=== PATIENT | male | born 1980 | race Two or more races ===

== ENCOUNTER 2021-12-07 03:41 | Emergency (ER) | payer OTHER ==
[~2021-12-07] VITALS: Ht 175.3 cm; Wt 90.7 kg
--- NOTE | 2021-12-07 04:00 | NUR ---
PT C/O MIGRAINE PL: 04/24. A/O X4, NO SOB OR LABORED BREATHING
--- NOTE | 2021-12-07 04:01 | NUR ---
Dr Rivera at bedside for MSE
[2021-12-07] MEDS ORDERED: HYDROMORPHONE 1 MG/1 ML DISP.SYRIN IM ONE (04:30)
[2021-12-07] MEDS ORDERED: ONDANSETRON ODT 4 MG TAB.RAPDIS SL ONE (04:30)
[2021-12-07] MEDS ORDERED: HYDROMORPHONE 2 MG/1 ML DISP.SYRIN ONE (04:41)
[2021-12-07] MEDS ORDERED: ONDANSETRON ODT 4 MG TAB.RAPDIS ONE (04:42)
[2021-12-07] MEDS ORDERED: HYDROMORPHONE 1 MG/1 ML DISP.SYRIN ONE (04:43)
[2021-12-07] MEDS ORDERED: OXYC-128 PO (05:02)
[2021-12-07] MEDS ORDERED: PROC-11 PO (05:02)
--- NOTE | 2021-12-07 05:20 | NUR ---
Patient discharged to home in stable condition. Written and verbal after care instructions given. Patient verbalizes understanding of instructions. Stressed follow up or return to ER for worsening s/s. Patient ambulated steady gait, denies pain, no SOB, no CP, A/O x4, no distress noted.
[2021-12-07 05:30] VITALS: BP 120/76
[2021-12-07 05:30] LABS: POTASSIUM 4.5 mmol/L (3.5-5.1)
[2021-12-07 05:31] LABS: CREATININE 1.7 mg/dL (0.6-1.3)
[2021-12-07 06:32] LABS: BILIRUBIN,DIRECT 0.1 mg/dL (0.0-0.2); BILIRUBIN,TOTAL 0.6 mg/dL (0.2-1.0)
[2021-12-07 06:33] LABS: TOTAL PROTEIN, SERUM 7.5 g/dL (6.4-8.2)
== END 2021-12-07 05:28 | disposition home or self-care (01) ==
LOC: ER 03:56
DX: B02.9 Zoster without complications (principal); R50.9 Fever, unspecified; M79.10 Myalgia, unspecified site
CPT/HCPCS: 36415; 80048; 80076; 85025; 96372; 99283; J1170 ×2; A4663; Q0162

== ENCOUNTER 2024-03-22 16:13 | Emergency (ER) | payer OTHER ==
[~2024-03-22] VITALS: Ht 175.3 cm; Wt 93.0 kg
[~2024-03-22 16:13] MED LIST: OXYC-128 PO; PROC-11 PO
[2024-03-22 17:18] LABS: BASOPHILS # (AUTO) 0.1 K/UL (0.0-0.2); BASOPHILS % (AUTO) 0.9 % (0.0-2.0); EOSINOPHILS # (AUTO) 0.2 K/uL (0.0-0.7); EOSINOPHILS % (AUTO) 3.3 % (0.0-7.0); HEMATOCRIT 50.1 % (36.7-47.1); LYMPHOCYTES # (AUTO) 1.3 K/uL (0.8-4.8); LYMPHOCYTES % (AUTO) 21.7 % (20.5-51.5); MEAN CORPUSCULAR HEMOGLOBIN 31.5 uug (23.8-33.4); MEAN CORPUSCULAR HGB CONC 34 g/dL (32.5-36.3); MONOCYTES # (AUTO) 0.4 K/uL (0.1-1.30); MONOCYTES % (AUTO) 7.3 % (0.0-11.0); NEUTROPHILS % (AUTO) 66.8 % (38.5-71.5); PLATELET COUNT (AUTO) 230 K/uL (152-348); RED BLOOD CELL COUNT(AUTO) 5.39 MIL/uL (4.06-5.63); RED CELL DISTRIBUTION WIDTH 13.6 % (12.1-16.2); WHITE BLOOD COUNT (AUTO) 6.1 K/uL (3.6-10.2)
[2024-03-22 17:19] LABS: DIFFERENTIAL COMMENT 1
[2024-03-22] MEDS ORDERED: IOHEXOL 350 100 ML INFUS..BTL ONE (17:23)
[2024-03-22] MEDS ORDERED: IV NORMAL SALINE 250 ML IV ONE (17:23)
[2024-03-22] MEDS ORDERED: SWABABLE VALVE TRANSFER SET EA MC ONE (17:23)
[2024-03-22 17:25] LABS: CALCIUM 8.8 mg/dL (8.5-10.1); CARBON DIOXIDE 27 mmol/L (21-32); CHLORIDE 105 mmol/L (98-107); CREATININE 1.5 mg/dL (0.6-1.3); GLUCOSE 94 mg/dL (74-106); POTASSIUM 4.2 mmol/L (3.5-5.1); SODIUM SERUM 140 mmol/L (136-145); UREA NITROGEN, BLOOD 14 mg/dL (7-18)
[2024-03-22 17:34] LABS: ALANINE AMINOTRANSFERASE 31 U/L (16-63); ALBUMIN 3.4 g/dL (3.4-5.0); ALKALINE PHOSPHATASE 66 U/L (50-136); ASPARTATE AMINOTRANSFERASE 16 U/L (15-37); BILIRUBIN,DIRECT 0.2 mg/dL (0.0-0.2); BILIRUBIN,TOTAL 0.5 mg/dL (0.2-1.0); TOTAL PROTEIN, SERUM 7.3 g/dL (6.4-8.2)
[2024-03-22 19:09] VITALS: BP 131/61; O2SAT 97
== END 2024-03-22 19:11 | disposition home or self-care (01) ==
LOC: ER 16:14
DX: R42 Dizziness and giddiness (principal); Z79.899 Other long term (current) drug therapy; Z79.891 Long term (current) use of opiate analgesic; Z60.2 Problems related to living alone
CPT/HCPCS: 99285; 70496; 71045; 80076; 80048; 85025; 85730; 84484; 36415; 93005 ×2; 70498; Q9967; A4606; A4663

== ENCOUNTER 2024-07-31 12:15 | Emergency (ER) | payer MEDICAID, OTHER ==
[~2024-07-31] VITALS: Ht 175.3 cm; Wt 90.7 kg
[2024-07-31 13:21] LABS: ALANINE AMINOTRANSFERASE 33 U/L (16-63); ALBUMIN 3.4 g/dL (3.4-5.0); ALKALINE PHOSPHATASE 67 U/L (50-136); ASPARTATE AMINOTRANSFERASE 20 U/L (15-37); BILIRUBIN,DIRECT 0.1 mg/dL (0.0-0.2); BILIRUBIN,TOTAL 0.5 mg/dL (0.2-1.0); CALCIUM 8.6 mg/dL (8.5-10.1); CARBON DIOXIDE 28 mmol/L (21-32); CHLORIDE 104 mmol/L (98-107); CREATININE 1.4 mg/dL (0.6-1.3); GLUCOSE 102 mg/dL (74-106); POTASSIUM 4.1 mmol/L (3.5-5.1); SODIUM SERUM 138 mmol/L (136-145); TOTAL PROTEIN, SERUM 7.2 g/dL (6.4-8.2); UREA NITROGEN, BLOOD 18 mg/dL (7-18)
[2024-07-31 13:32] LABS: BASOPHILS # (AUTO) 0.1 K/UL (0.0-0.2); BASOPHILS % (AUTO) 1.1 % (0.0-2.0); EOSINOPHILS # (AUTO) 0.1 K/uL (0.0-0.7); EOSINOPHILS % (AUTO) 2.1 % (0.0-7.0); HEMATOCRIT 46.1 % (36.7-47.1); LYMPHOCYTES # (AUTO) 1.3 K/uL (0.8-4.8); LYMPHOCYTES % (AUTO) 23.2 % (20.5-51.5); MEAN CORPUSCULAR HEMOGLOBIN 31.8 uug (23.8-33.4); MEAN CORPUSCULAR HGB CONC 35 g/dL (32.5-36.3); MEAN CORPUSCULAR VOLUME 91.9 fL (73.0-96.2); MONOCYTES # (AUTO) 0.5 K/uL (0.1-1.30); MONOCYTES % (AUTO) 8.8 % (0.0-11.0); NEUTROPHILS # (AUTO) 3.5 K/uL (1.8-8.9); NEUTROPHILS % (AUTO) 64.8 % (38.5-71.5); PLATELET COUNT (AUTO) 190 K/uL (152-348); RED BLOOD CELL COUNT(AUTO) 5.02 MIL/uL (4.06-5.63); RED CELL DISTRIBUTION WIDTH 13.7 % (12.1-16.2); WHITE BLOOD COUNT (AUTO) 5.5 K/uL (3.6-10.2)
[2024-07-31] MEDS ORDERED: SWABABLE VALVE TRANSFER SET EA MC ONE (13:45)
[2024-07-31] MEDS ORDERED: IOHEXOL 350 100 ML INFUS..BTL ONE (13:45)
[2024-07-31] MEDS ORDERED: IV NORMAL SALINE 250 ML IV ONE (13:45)
[2024-07-31 16:25] VITALS: BP 134/64; TEMP 97; O2SAT 98
== END 2024-07-31 16:26 | disposition home or self-care (01) ==
LOC: ER 12:15
DX: R42 Dizziness and giddiness (principal); E11.21 Type 2 diabetes mellitus with diabetic nephropathy; R11.0 Nausea; M54.2 Cervicalgia; R26.81 Unsteadiness on feet; R51.9 Headache, unspecified; Z87.2 Personal history of diseases of the skin and subcutaneous tissue; Z60.2 Problems related to living alone
CPT/HCPCS: 99285; 70450; 80076; 80048; 85025; 85730; 84484; 36415; 70496; 70498; Q9967; A4606; A4663

== ENCOUNTER 2025-02-01 17:50 | Emergency (ER) | payer MEDICAID ==
[~2025-02-01] VITALS: Ht 175.3 cm; Wt 90.7 kg
[2025-02-01] MEDS ORDERED: CREATININE (18:37)
[2025-02-01] MEDS ORDERED: ASPI81TA31 PO (18:37)
[2025-02-01] MEDS ORDERED: [UNRECOGNIZED DRUG - OTHER] (18:37)
[2025-02-01] MEDS ORDERED: HERBAL MEDS (18:37)
[2025-02-01] MEDS ORDERED: MECL-159 PO (18:59)
[2025-02-01] MEDS ORDERED: CYCL5TAB PO (18:59)
[2025-02-01 19:05] VITALS: BP 100/69; O2SAT 99
== END 2025-02-01 19:13 | disposition home or self-care (01) ==
LOC: ER 19:08
DX: R42 Dizziness and giddiness (principal); G44.209 Tension-type headache, unspecified, not intractable; Z79.82 Long term (current) use of aspirin; Z87.448 Personal history of other diseases of urinary system; Z87.2 Personal history of diseases of the skin and subcutaneous tissue; Z60.2 Problems related to living alone
CPT/HCPCS: A4606; A4663